=== PATIENT | female | born 1975 | race Caucasian/White ===

== ENCOUNTER 2018-01-11 21:53 | Emergency (ER) | payer OTHER ==
[~2018-01-11] VITALS: Ht 162.6 cm; Wt 55.0 kg
[~2018-01-11 21:53] MED LIST: IBUP800 PO; PRENTAB PO
[2018-01-11 22:11] VITALS: BP 154/76; PULSE 97; RESP 18; TEMP 98; O2SAT 99
--- NOTE | 2018-01-12 01:54 | PD ---
HPI Chief Complaint: Back/ Neck Pain or Injury Time Seen by Provider: 01:33 Travel History International Travel<30 days: No Contact w/Intl Traveler<30days: No Traveled to known affect area: No History of Present Illness HPI The patient is a 42-year-old female that complains of neck pain for almost a month. The pain shoots down her left arm all the way into her fingers and she does get some numbness on the dorsum of her and. She states her tramadol is not working for the pain. She says muscle relaxants have not worked for her. She states she had an MRI and C5-[address] Morocho has referred her to a neurosurgeon but she does not see the neurosurgeon until Wednesday. She states the pain is a 9/10 and sharp pain. She does not work but she does have children at home that she needs to take care of. PFSH Past Medical History Tetanus Vaccination: Unknown Influenza Vaccination: No ?: Not : 4 Para: 1 Miscarriage: 2 : 0 Past Surgical History Thoracic Surgery: Yes (BREAST REDUCTION) Social History Alcohol Use: Yes ([facility]) Tobacco Use: No Substance Use: No Allergies-Medications (Allergen,Severity, Reaction): Coded Allergies: No Known Allergies (Verified , 07/16/12) Reported Meds & Prescriptions Reported Meds & Active Scripts Active Percocet (Oxycodone-Acetaminophen) 7.5-325 mg Tab 1 Tab PO Q4H PRN Ibuprofen 600 Mg Tab 600 Mg PO TID Reported Motrin 800 Mg Tab (Ibuprofen) 800 Mg Tab 800 Mg PO Q8HPRN ( Vit W/ Ferrous Fumara) Tab 1 Tab PO DAILY Review of Systems Except as stated in HPI: all other systems reviewed are Neg Physical Exam Narrative GENERAL: The patient is alert, oriented 3 in moderate to severe apparent distress. Her vital signs show blood pressure 134/76 but are otherwise normal. SKIN: Focused skin assessment warm/dry. No needle tracks nor wrist slash reid are present. No skin rash is present. HEAD: Atraumatic. Normocephalic. EYES: Pupils equal and round. No scleral icterus. No injection or drainage. ENT: No nasal bleeding or discharge. Mucous membranes pink and moist. NECK: Trachea midline. No JVD. I can reproduce the pain by pressing on the lower neck midline. CARDIOVASCULAR: Regular rate and rhythm. No murmur appreciated. RESPIRATORY: No accessory muscle use. Clear to auscultation. Breath sounds equal bilaterally. GASTROINTESTINAL: Abdomen soft, non-tender, nondistended. Hepatic and splenic margins not palpable. MUSCULOSKELETAL: No obvious deformities. No clubbing. No cyanosis. No edema. NEUROLOGICAL: Awake and alert. No obvious cranial nerve deficits. Motor grossly within normal limits. Normal speech. The patient has decreased pinprick sensation on the dorsum of the hand and wrist on the left side only. PSYCHIATRIC: Appropriate mood and affect; insight and judgment normal. Data Data Last Documented VS Vital Signs Date Time Temp Pulse Resp B/P (MAP) Pulse Ox O2 Delivery O2 Flow Rate FiO2 01/11/18 22:11 98.0 97 18 154/76 (102) 99 Orders Orders Splint Or Brace Apply/Monitor (01/12/18 01:54) Ketorolac Inj (Toradol Inj) (01/12/18 02:00) Orphenadrine Inj (Norflex Inj) (01/12/18 02:00) Morphine Inj (Morphine Inj) (01/12/18 02:00) MDM Medical Decision Making Medical Screen Exam Complete: Yes Emergency Medical Condition: Yes Medical Record Reviewed: Yes Differential Diagnosis Cervical radiculopathy, herniated disc, malingering to obtain pain medications, cervical strain Narrative Course By history the patient has a herniated disc which causes pain to radiate down the left arm. She will be given Motrin 600 mg 3 times daily, taken regularly and a cervical collar and Percocet 7.5. Diagnosis Primary Impression: Herniated cervical disc Additional Instructions: Try to rest as best you can. Movements of the neck will probably aggravate your condition. Follow-up with a neurosurgeon as soon as possible. Med/Other Pt SpecificInfo: Prescription(s) given Scripts Oxycodone-Acetaminophen (Percocet) 7.5-325 mg Tab 1 TAB PO Q4H Y for PAIN, #20 TAB 0 Refills Prov: Adrian Jessica MD 01/12/18 Ibuprofen (Ibuprofen) 600 Mg Tab 600 MG PO TID, #33 TAB 0 Refills Prov: Adrian Jessica MD 01/12/18 Disposition: 01 DISCHARGE HOME Condition: Stable Adrian Jessica MD Jan 12, 2018:54
[2018-01-12] MEDS ORDERED: PERC7.5T13 PO (01:59)
[2018-01-12] MEDS ORDERED: IBUP-232 PO (01:59)
[2018-01-12] MEDS ORDERED: KETOROLAC TROMETHAMINE 60 MG/2 ML (IM) VIAL IM ONE (02:00)
[2018-01-12] MEDS ORDERED: ORPHENADRINE INJ 60 MG/2 ML AMP IM ONE (02:00)
[2018-01-12] MEDS ORDERED: MORPHINE SULFATE 8 MG/ML INJ IM ONE (02:00)
== END 2018-01-12 02:17 | disposition home or self-care (01) ==
LOC: PHED 21:53
DX: M50.122 Cervical disc disorder at C5-C6 level with radiculopathy (principal)
CPT/HCPCS: 96372; 99283; J1885; J2270; J2360